=== PATIENT | female | born 1975 | race Caucasian/White ===

== ENCOUNTER → 2016-07-22 | Outpatient (CLI) | payer BC, SELFPAY ==
[~2016-07-22] MED LIST: CALCIUM500 M1 PO; COLACE100 MG PO; DECADRON1 MG PO; EFFEXOR XR75 MG PO; FLEXERIL10 MG PO; LYRICA 75MG CAP75 MG PO; MIRALAX PO527 GM/BOT PO; OXYCONTIN EXTEN10 MG PO; PEPCID20 MG PO; PERCOCET 10-321 EACH PO; ROXICODONE 5MG (5 MG PO; TOPAMAX25 MG PO; TYLENOL325 MG PO; VITAMIN D1000 UNIT PO; XANAX0.25 MG PO; ZANAFLEX4 MG PO; ZOFRAN4 MG PO
== END | disposition disaster alternative care site (69) ==
LOC: GRAD 13:07
DX: Z48.89 Encounter for other specified surgical aftercare (principal); Z98.1 Arthrodesis status; Z98.890 Other specified postprocedural states

== ENCOUNTER → 2016-09-30 | Outpatient (CLI) | payer BC | END | disposition disaster alternative care site (69) | LOC: GRAD 08:19 | DX: Z48.89 Encounter for other specified surgical aftercare (principal); S13.100D Subluxation of unspecified cervical vertebrae, subsequent encounter; S12.9XXD Fracture of neck, unspecified, subsequent encounter; Z98.1 Arthrodesis status; Z98.890 Other specified postprocedural states ==

== ENCOUNTER 2016-12-25 22:28 | Emergency (ER) | payer MEDICAID ==
--- NOTE | ~2016-12-25 | ER ---
PATIENT'S NAME: VENESSA CHANEY [facility] AGE: 41 Y [address] ROOM: [place] [address] LOCATION: ED ADMIT DATE: 12/25/2016 ER/Outpatient Report DISCHARGE DATE: FAMILY PHYSICIAN: Eleno Dorman MD ATTENDING PHYSICIAN: Abdiel Price Time of Arrival: 2231 hours. Time of Exam: 2231 hours. CHIEF COMPLAINT: Back pain. HISTORY OF PRESENT ILLNESS: The patient states that she had back surgery at [facility] in [place] on 12/17/2016. She has been having increased swelling and pain over the last 24 hours. Has felt febrile at home. Denies any recent injury. Has not had any drainage from the site. ALLERGIES: ON THE CHART AND REVIEWED BY ME. MEDICATIONS: On the chart and reviewed by me. PAST MEDICAL HISTORY: Depression, degenerative disk disease, and spinal stenosis. PAST SURGERIES: Cervical fusion x2, lumbar fusion x3, pain stimulator insertion and removal, cholecystectomy, right ovary and fallopian tube removal. SOCIAL HISTORY: She presents to the ER accompanied by her . Denies use of tobacco, drugs, or alcohol. Dr. Dorman is her primary provider. Dr. Talbot at [facility] is her back doctor. REVIEW OF SYSTEMS: All negative other than those mentioned in the HPI. PHYSICAL EXAMINATION: VITAL SIGNS: She weighed 71.1 kg. Blood pressure was 115/61, pulse of 110, respirations 18, temperature of 99.6 tympanic, and O2 saturation was 97% on room air. GENERAL: She is awake, alert, and oriented x4. SKIN: [place], warm, and dry. PATIENT'S NAME: VENESSA CHANEY [facility] AGE: 41 Y [address] ROOM: [place] [address] LOCATION: [facility] ADMIT DATE: 12/25/2016 ER/Outpatient Report DISCHARGE DATE: FAMILY PHYSICIAN: Eleno Dorman MD ATTENDING PHYSICIAN: Abdiel Price RESPIRATIONS: Even and nonlabored. Lung sounds are clear throughout. HEART: Regular rate and rhythm. MUSCULOSKELETAL: Posterior lumbar incision is well approximated with sutures intact. It does feel slightly warm to touch, but no redness is noted, no discharge is noted. It is tender to touch around the incisional area. The patient walked with a steady even gait. EMERGENCY ROOM COURSE: Saline lock was initiated. Fluids of normal saline were started at a wide- open rate. She was given Dilaudid 0.5 mg IV. CBC shows a white count of 4.9, hemoglobin is 9.5 with hematocrit of 27.7. Chem Panel: Sodium is 141, potassium is 4, chloride of 106, BUN is 10, and creatinine is 0.6. Her CRP was normal at 0.73. Sedimentation rate is elevated at 53. Lactate was 1. Procalcitonin is normal. The patient did get some relief of the discomfort with the Dilaudid, it was repeated x1. IMPRESSION: Postsurgical lumbar back pain with inflammation. PLAN: Home, rest. Continue current medications. Follow up with primary provider in the next 2 or 3 days. She states she is scheduled to see a provider in [place] for recheck on 01/02, I encouraged her to keep that appointment. She verbalized understanding. TALIA VERA APRN FOR MD JULIA BRISCOE/fernando /[id number] d: 12/26/16 0103 t: 12/27/16 1808, OUTPATIENT REPORT
[2016-12-25 23:06] LABS: BASOPHIL % 0.6 %; EOSINOPHIL # 0.3 K/uL (0.0-0.5); EOSINOPHIL % 6.4 %; HEMATOCRIT 27.7 % (33.0-46.0); HEMOGLOBIN 9.5 g/dL (11.0-15.0); IMMATURE GRANULOCYTE % 0.6 %; LYMPHOCYTE # 1.5 K/uL (0.8-4.0); LYMPHOCYTE % 30.2 %; MCH 30.7 pg (27.0-34.0); MCHC 34.3 gm/dL (32.0-36.5); MCV 89.6 fl (83.0-98.0); MONOCYTE # 0.6 K/uL (0.0-1.0); MONOCYTE % 11.5 %; MPV 8.9 fl (9.4-12.4); NEUTROPHIL # (ANC) 2.5 K/uL (1.8-7.8); NEUTROPHIL % 50.7 %; NRBC % 0 /100WBC (0-0.00); PLATELET COUNT 327 K/uL (150-450); RBC 3.09 M/uL (3.50-5.50); RDW-CV 12.2 % (11.9-14.6); WBC 4.9 K/uL (4.0-11.0)
[2016-12-25 23:29] LABS: ALBUMIN 2.8 gm/dL (3.5-5.0); ALK PHOS 89 IU/L (33-138); ALT 35 IU/L (12-78); AST 25 IU/L (10-40); BLOOD UREA NITROGEN 10 mg/dL (6-24); CALCIUM 8.1 mg/dL (8.5-10.5); CHLORIDE 106 mMol/L (96-110); CO2 27 mMol/L (22-32); CREATININE 0.6 mg/dL (0.5-1.1); SODIUM 141 mMol/L (135-145); TOTAL BILIRUBIN 0.5 mg/dL (0.0-1.5); TOTAL PROTEIN 6.1 g/dL (6.0-8.4)
== END 2016-12-26 00:16 | disposition disaster alternative care site (69) ==
LOC: GMED 22:28
PROVIDERS: Nurse Practitioner Family
DX: G89.18 Other acute postprocedural pain (principal); M54.5 Low back pain; F32.9 Major depressive disorder, single episode, unspecified; Z90.49 Acquired absence of other specified parts of digestive tract; Z90.79 Acquired absence of other genital organ(s); Z88.5 Allergy status to narcotic agent; Z88.8 Allergy status to other drugs, medicaments and biological substances; Z79.891 Long term (current) use of opiate analgesic; Z79.899 Other long term (current) drug therapy; Z98.1 Arthrodesis status
CPT/HCPCS: J1170; J7030